=== PATIENT | male | born 1975 | race African-American/Black ===

== ENCOUNTER → 2017-02-28 | Outpatient (CLI) | payer OTHER ==
[2017-02-28 13:57] LABS: BUN/CREATININE RATIO 17 (0-10)
== END ==
LOC: CT 02-25 16:30
PROVIDERS: Internal Medicine Cardiovascular Disease
DX: R79.89 Other specified abnormal findings of blood chemistry (principal)
CPT/HCPCS: 36415; 80048

== ENCOUNTER → 2017-03-02 | Outpatient (CLI) | payer OTHER | LOC: CT 08:00 | DX: R06.02 Shortness of breath (principal); R91.8 Other nonspecific abnormal finding of lung field | CPT/HCPCS: 71270; J7050; Q9962 ==